=== PATIENT | female | born 1970 | race Caucasian/White ===

== ENCOUNTER 2019-12-27 12:43 | Inpatient (IN) | payer MEDICARE ==
[2019-12-27 13:04] LABS: Glucose,Whole Blood 255 mg/dL (75-99)
--- NOTE | 2019-12-27 13:53 | ED ---
General Adult HPI - General Chief complaint: Psychiatric Symptoms Stated complaint: mental health Time Seen by Provider: 12/27/19 13:09 Source: patient, family, RN notes reviewed, old records reviewed Mode of arrival: ambulatory Limitations: no limitations - History of Present Illness Initial comments: 49-year-old male patient past history of bipolar depression presents to ED for chief complaint of difficulty sleeping feeling as if she is becoming manic. Denies any suicidal or homicidal ideations. Denies any physical complaints. does report that she has been urinating more than usual. Patient is a diabetic. Denies any action to hurt herself. Systemic: Pt denies fatigue, fever/chills, rash. Pt denies weakness, night sweats, weight loss. Neuro: Pt denies headache, visual disturbances, syncope or pre-syncope. HEENT: Pt denies ocular discharge or irritation, otalgia, rhinorrhea, pharyngitis or notable lymphadenopathy. Cardiopulmonary: Pt denies chest pain, SOB, heart palpitations, dyspnea on exertion. Abdominal/GI: Pt denies abdominal pain, n/v/d. : Pt denies dysuria, burning w/ urination, frequency/urgency. Denies new onset urinary or bowel incontinence. MSK: Pt denies myalgia, loss of strength or function in extremities. Neuro: Pt denies new onset weakness, paresthesias. - Related Data Home Medications Medication Instructions Recorded Confirmed Acetaminophen [Tylenol] 650 mg PO Q6H PRN 03/08/16 07/03/16 diphenhydrAMINE HCL [Benadryl] 50 mg PO HS 03/08/16 07/03/16 Previous Rx's Medication Instructions Recorded Atorvastatin [Lipitor] 10 mg PO HS #30 tab 03/15/16 DULoxetine HCL [Cymbalta] 30 mg PO DAILY #30 capsule.dr 03/15/16 Divalproex ER [Depakote ER] 1,000 mg PO HS #90 tab.er.24h 03/15/16 Divalproex ER [Depakote ER] 500 mg PO DAILY #90 tab.er.24h 03/15/16 Lisinopril [Zestril] 10 mg PO DAILY #30 tab 03/15/16 clonazePAM [KlonoPIN] 0.5 mg PO BID PRN #60 tab 03/15/16 metFORMIN HCL [Glucophage] 500 mg PO W/BRKFST #30 tab 03/15/16 Diazepam [Valium] 5 mg PO BID #14 tab 07/03/16 HYDROcodone/APAP 5-325MG [Hanna 1 - 2 tab PO Q6HR PRN #14 tab 07/03/16 5-325] Ibuprofen [Motrin] 800 mg PO Q8HR PRN #20 tab 07/03/16 Allergies Allergy/AdvReac Type Severity Reaction Status Date / Time Penicillins Allergy Unknown Verified 12/27/19 12:50 Review of Systems ROS Statement: Those systems with pertinent positive or pertinent negative responses have been documented in the HPI. ROS Other: All systems not noted in ROS Statement are negative. Past Medical History Past Medical History: Diabetes Mellitus, GERD/Reflux, Hyperlipidemia, Hypertension, Osteoarthritis (OA) Additional Past Medical History / Comment(s): NIDD History of Any Multi-Drug Resistant Organisms: None Reported Past Surgical History: Hysterectomy Additional Past Surgical History / Comment(s): foot, nyla tendon, bladder lift. Past Anesthesia/Blood Transfusion Reactions: No Reported Reaction Past Psychological History: Anxiety, Bipolar, Depression Smoking Status: Current every day smoker Past Alcohol Use History: None Reported Past Drug Use History: Marijuana - Past Family History Father Family Medical History: Hyperlipidemia, Hypertension Additional Family Medical History / Comment(s): Father is alive at age 77 with history of hypertension, hyperlipidemia. Mother Family Medical History: Hypertension, Mitral Valve Prolapse (MVP) Additional Family Medical History / Comment(s): Mother is alive at age 80 with history of hypertension and mitral valve prolapse. Sister(s) Additional Family Medical History / Comment(s): She has one half sister with no major medical problems. She does not have any brothers. She has 2 daughters with no major medical problems. General Exam - General Exam Comments Initial Comments: Constitutional: NAD, AOX3, Pt has pleasant affect. HEENT: NC/AT, trachea midline, neck supple, no lymphadenopathy. Posterior pharynx non erythematous, without exudates. External ears appear normal, without discharge. Mucous membranes moist. Eyes PERRLA, EOM intact. There is no scleral icterus. No pallor noted. Cardiopulmonary: RRR, no murmurs, rubs or gallops, no JVD noted. Lungs CTAB in anterior and posterior marti. No peripheral edema. Abdominal exam: Abdomen soft and non-distended. Abdomen non-tender to palpation in all 4 quadrants. Bowel sounds active in LLQ. No hepatosplenomegaly. No ecc hymosis Neuro: CN II-XII grossly intact. No nuchal rigidity. No raccon eyes, no márquez sign, no hemotympanum. No cervical spinal tenderness. MSK: No posterior calf tenderness bilaterally, homans sign negative bilaterally. Posterior tibialis and radial pulse +2 bilaterally. Sensation intact in upper and lower extremities. Full active ROM in upper and lower extremities, 5/5 stregnth. Limitations: no limitations Course Vital Signs 12/27/19 12/27/19 12/27/19 12:47 13:40 16:12 Temperature 98.2 F 98.3 F Pulse Rate 118 H 100 122 H Respiratory 20 17 Rate Blood Pressure 167/88 178/95 O2 Sat by Pulse 99 97 Oximetry 12/27/19 16:22 Temperature Pulse Rate 105 H Respiratory Rate Blood Pressure O2 Sat by Pulse Oximetry Medical Decision Making - Medical Decision Making 49-year-old male patient past history of bipolar depression presents to ED for chief complaint of difficulty sleeping feeling as if she is becoming manic. Denies any suicidal or homicidal ideations. Denies any physical complaints. does report that she has been urinating more than usual. Patient is a diabetic. Denies any action to hurt herself. Patient vital signs but mild hypertension, mild tachycardia, patient is anxious. Physical exam did not display acute pathology. Laboratory investigations were obtained, therefore a m ild leukocytosis. Mildly decreased bicarbonate, glucose of 246, mild transaminitis which appears unchanged, anion gap is 15, +4 glucose, trace ketones. She does have small leukocyte esterase and 8 white blood cells however denies any dysuria. Acetone is negative. Patient was administered 1 L of normal saline as well as insulin. Patient evaluated by EPS and will be admitted. Case discussed in depth with Dr. Taylor. - Lab Data Result diagrams: 12/27/19 13:40 12/27/19 13:40 Lab Results 12/27/19 12/27/19 12/27/19 Range/Units 13:02 13:30 13:30 WBC (3.8-10.6) k/uL RBC (3.80-5.40) m/uL Hgb (11.4-16.0) gm/dL Hct (34.0-46.0) % MCV (80.0-100.0) fL MCH (25.0-35.0) pg MCHC (31.0-37.0) g/dL RDW (11.5-15.5) % Plt Count (150-450) k/uL Neutrophils % % Lymphocytes % % Monocytes % % Eosinophils % % Basophils % % Neutrophils # (1.3-7.7) k/uL Lymphocytes # (1.0-4.8) k/uL Monocytes # (0-1.0) k/uL Eosinophils # (0-0.7) k/uL Basophils # (0-0.2) k/uL Sodium (137-145) mmol/L Potassium (3.5-5.1) mmol/L Chloride (98-107) mmol/L Carbon Dioxide (22-30) mmol/L Anion Gap mmol/L BUN (7-17) mg/dL Creatinine (0.52-1.04) mg/dL Est GFR (CKD-EPI)AfAm (>60 ml/min/1.73 sqM) Est GFR (CKD-EPI)NonAf (>60 ml/min/1.73 sqM) Glucose (74-99) mg/dL POC Glucose (mg/dL) 255 H (75-99) mg/dL POC Glu Director Client ID Venessa Wilson Calcium (8.4-10.2) mg/dL Total Bilirubin (0.2-1.3) mg/dL AST (14-36) U/L ALT (4-34) U/L Alkaline Phosphatase (38-126) U/L Total Protein (6.3-8.2) g/dL Albumin (3.5-5.0) g/dL Urine Color Light Yellow Urine Appearance Clear (Clear) Urine pH 5.5 (5.0-8.0) Ur Specific [place] 1.007 (1.001-1.035) Urine Protein Negative (Negative) Urine Glucose (UA) 4+ H (Negative) Urine Ketones Trace H (Negative) Urine Blood Negative (Negative) Urine Nitrite Negative (Negative) Urine Bilirubin Negative (Negative) Urine Urobilinogen <2.0 (<2.0) mg/dL Ur Leukocyte Esterase Small H (Negative) Urine RBC 1 (0-5) /hpf Urine WBC 8 H (0-5) /hpf Ur Squamous Epith Cells 2 (0-4) /hpf Urine Bacteria Occasional H (None) /hpf Urine Mucus Rare H (None) /hpf Urine Opiates Screen Not Detected (NotDetected) Ur Oxycodone Screen Not Detected (NotDetected) Urine Methadone Screen Not Detected (NotDetected) Ur Propoxyphene Screen Not Detected (NotDetected) Ur Barbiturates Screen Not Detected (NotDetected) Valproic Acid ug/mL U Tricyclic Antidepress Not Detected (NotDetected) Ur Phencyclidine Scrn Not Detected (NotDetected) Ur Amphetamines Screen Not Detected (NotDetected) U Methamphetamines Scrn Not Detected (NotDetected) U Benzodiazepines Scrn Not Detected (NotDetected) Urine Cocaine Screen Not Detected (NotDetected) U Marijuana (THC) Screen Not Detected (NotDetected) Acetone, Qual (Negative) 12/27/19 12/27/19 12/27/19 Range/Units 13:40 13:40 13:40 WBC 14.5 H (3.8-10.6) k/uL RBC 5.17 (3.80-5.40) m/uL Hgb 14.2 (11.4-16.0) gm/dL Hct 42.7 (34.0-46.0) % MCV 82.5 (80.0-100.0) fL MCH 27.5 (25.0-35.0) pg MCHC 33.3 (31.0-37.0) g/dL RDW 13.4 (11.5-15.5) % Plt Count 546 H (150-450) k/uL Neutrophils % 77 % Lymphocytes % 18 % Monocytes % 3 % Eosinophils % 1 % Basophils % 0 % Neutrophils # 11.2 H (1.3-7.7) k/uL Lymphocytes # 2.5 (1.0-4.8) k/uL Monocytes # 0.5 (0-1.0) k/uL Eosinophils # 0.1 (0-0.7) k/uL Basophils # 0.0 (0-0.2) k/uL Sodium 134 L (137-145) mmol/L Potassium 4.9 (3.5-5.1) mmol/L Chloride 103 (98-107) mmol/L Carbon Dioxide 16 L (22-30) mmol/L Anion Gap 15 mmol/L BUN 6 L (7-17) mg/dL Creatinine 0.47 L (0.52-1.04) mg/dL Est GFR (CKD-EPI)AfAm >90 (>60 ml/min/1.73 sqM) Est GFR (CKD-EPI)NonAf >90 (>60 ml/min/1.73 sqM) Glucose 246 H (74-99) mg/dL POC Glucose (mg/dL) (75-99) mg/dL POC Glu Director Client ID Calcium 10.0 (8.4-10.2) mg/dL Total Bilirubin 0.6 (0.2-1.3) mg/dL AST 38 H (14-36) U/L ALT 35 H (4-34) U/L Alkaline Phosphatase 127 H (38-126) U/L Total Protein 8.2 (6.3-8.2) g/dL Albumin 5.0 (3.5-5.0) g/dL Urine Color Urine Appearance (Clear) Urine pH (5.0-8.0) Ur Specific [place] (1.001-1.035) Urine Protein (Negative) Urine Glucose (UA) (Negative) Urine Ketones (Negative) Urine Blood (Negative) Urine Nitrite (Negative) Urine Bilirubin (Negative) Urine Urobilinogen (<2.0) mg/dL Ur Leukocyte Esterase (Negative) Urine RBC (0-5) /hpf Urine WBC (0-5) /hpf Ur Squamous Epith Cells (0-4) /hpf Urine Bacteria (None) /hpf Urine Mucus (None) /hpf Urine Opiates Screen (NotDetected) Ur Oxycodone Screen (NotDetected) Urine Methadone Screen (NotDetected) Ur Propoxyphene Screen (NotDetected) Ur Barbiturates Screen (NotDetected) Valproic Acid <10.0 ug/mL U Tricyclic Antidepress (NotDetected) Ur Phencyclidine Scrn (NotDetected) Ur Amphetamines Screen (NotDetected) U Methamphetamines Scrn (NotDetected) U Benzodiazepines Scrn (NotDetected) Urine Cocaine Screen (NotDetected) U Marijuana (THC) Screen (NotDetected) Acetone, Qual Negative (Negative) Disposition Clinical Impression: Hyperglycemia, Psychiatric disorder Disposition: ADMITTED IP TO THIS HOSP Condition: Serious Is patient prescribed a controlled substance at d/c from ED?: No Referrals: None,Stated [Primary Care Provider] - 1-2 days
[2019-12-27 13:58] LABS: Appearance,Urine Clear (Clear); Bacteria,Urine Occasional /hpf; Bilirubin,Urine Negative (Negative); Blood,Urine Negative (Negative); Color,Urine Light Yellow; Glucose,Urine (UA) 4+ (Negative); Ketones,Urine Trace (Negative); Leukocyte Esterase,Urine Small (Negative); Mucus,Urine Rare /hpf; Nitrite,Urine Negative (Negative); PH, Urine 5.5 (5.0-8.0); Protein,Urine Negative (Negative); RBC,Urine 1 /hpf (0-5); Specific Gravity,Urine 1.007 (1.001-1.035); Squamous Epithelial Cell,Urine 2 /hpf (0-4); Urobilinogen,Urine <2.0 mg/dL (<2.0); WBC,Urine 8 /hpf (0-5)
[2019-12-27 14:03] LABS: Basophils % (A) 0 %; Eosinophils # (A) 0.1 k/uL (0-0.7); Eosinophils % (A) 1 %; HCT 42.7 % (34.0-46.0); HGB 14.2 gm/dL (11.4-16.0); Lymphocytes # (A) 2.5 k/uL (1.0-4.8); Lymphocytes % (A) 18 %; MCH 27.5 pg (25.0-35.0); MCHC 33.3 g/dL (31.0-37.0); MCV 82.5 fL (80.0-100.0); Mean Platelet Volume 6.7; Monocytes # (A) 0.5 k/uL (0-1.0); Monocytes % (A) 3 %; Neutrophils # (A) 11.2 k/uL (1.3-7.7); Neutrophils % (A) 77 %; Platelet Count 546 k/uL (150-450); RBC 5.17 m/uL (3.80-5.40); RDW 13.4 % (11.5-15.5); WBC 14.5 k/uL (3.8-10.6)
[2019-12-27 14:09] LABS: Amphetamine Screen,Urine Not Detected (NotDetected); Barbiturate Screen,Urine Not Detected (NotDetected); Benzodiazepines Screen,Urine Not Detected (NotDetected); Cocaine Screen,Urine Not Detected (NotDetected); Methadone Screen, Urine Not Detected (NotDetected); Opiate Screen,Urine Not Detected (NotDetected); Oxycodone Screen, Urine Not Detected (NotDetected); Phencyclidine Screen,Urine Not Detected (NotDetected); Tricyclic Antidepressant,Urine Not Detected (NotDetected); Urn Cannabinoid Scrn Not Detected (NotDetected)
[2019-12-27 14:18] LABS: ALT 35 U/L (4-34); AST 38 U/L (14-36); African American GFR (CKD) >90 (>60 ml/min/1.73 sqM); Alkaline Phosphatase 127 U/L (38-126); Anion Gap 15 mmol/L; Blood Urea Nitrogen 6 mg/dL (7-17); Carbon Dioxide 16 mmol/L (22-30); Chloride 103 mmol/L (98-107); Glucose 246 mg/dL (74-99); Non-African American GFR(CKD) >90 (>60 ml/min/1.73 sqM); Potassium 4.9 mmol/L (3.5-5.1); Sodium 134 mmol/L (137-145); Total Bilirubin 0.6 mg/dL (0.2-1.3); Total Protein 8.2 g/dL (6.3-8.2)
[2019-12-27 14:23] LABS: Valproic Acid (Depakene) <10.0 ug/mL
[2019-12-27] MEDS ORDERED: SODIUM CHLORIDE 0.9% 1,000 ML IV ONE (14:28)
[2019-12-27] MEDS ORDERED: INSULIN ASPART (NovoLOG) 100 UNIT/ML VIAL SQ ONE (14:29)
[2019-12-27] MEDS ORDERED: clonazePAM 0.5 MG TAB PO STA (16:27)
[2019-12-27 16:39] LABS: Glucose,Whole Blood 171 mg/dL (75-99)
[2019-12-27 17:36] LABS: Glucose,Whole Blood 151 mg/dL (75-99)
[2019-12-27] MEDS: ZIPRASIDONE 20 MG VIAL IM PRN (17:50)
[2019-12-27] MEDS: ATORVASTATIN 10 MG TAB PO SCH (21:15)
[2019-12-27 21:20] LABS: Glucose,Whole Blood 125 mg/dL (75-99)
[2019-12-28] MEDS: clonazePAM 0.5 MG TAB PO PRN (02:52)
[2019-12-28] MEDS: ACETAMINOPHEN TAB 325 MG TAB PO PRN (02:53)
[2019-12-28 07:11] LABS: Glucose,Whole Blood 206 mg/dL (75-99)
[2019-12-28] MEDS: metFORMIN 500 MG TAB PO SCH (08:26)
[2019-12-28] MEDS: LISINOPRIL 10 MG TAB PO SCH (08:26)
[2019-12-28] MEDS: DIVALPROEX ER 500 MG TAB.ER.24H PO SCH ×2 (08:28→21:41)
[2019-12-28] MEDS ORDERED: DULoxetine HCL 30 MG CAPSULE.DR PO SCH (09:00)
[2019-12-28 10:53] LABS: Glucose,Whole Blood 165 mg/dL (75-99)
[2019-12-28 12:28] LABS: Glucose,Whole Blood 165 mg/dL (75-99)
--- NOTE | 2019-12-28 14:01 | P.HP ---
Psychiatric H&P - . H&P Date: 12/28/19 History & Physical: Allergies Allergy/AdvReac Type Severity Reaction Status Date / Time Penicillins Allergy Unknown Verified 12/27/19 12:50 Vital Signs Temp 98.4 F 12/28/19 06:07 Pulse 115 H 12/28/19 08:28 Resp 20 12/28/19 08:28 BP 142/85 12/28/19 08:28 Pulse Ox 95 12/28/19 06:07 Intake & Output 12/27/19 12/28/19 12/28/19 18:59 06:59 18:59 Weight 91.9 kg Laboratory Last Values WBC 14.5 k/uL (3.8-10.6) H 12/27/19 13:40 RBC 5.17 m/uL (3.80-5.40) 12/27/19 13:40 Hgb 14.2 gm/dL (11.4-16.0) 12/27/19 13:40 Hct 42.7 % (34.0-46.0) 12/27/19 13:40 MCV 82.5 fL (80.0-100.0) 12/27/19 13:40 MCH 27.5 pg (25.0-35.0) 12/27/19 13:40 MCHC 33.3 g/dL (31.0-37.0) 12/27/19 13:40 RDW 13.4 % (11.5-15.5) 12/27/19 13:40 Plt Count 546 k/uL (150-450) H 12/27/19 13:40 Neutrophils % 77 % 12/27/19 13:40 Lymphocytes % 18 % 12/27/19 13:40 Monocytes % 3 % 12/27/19 13:40 Eosinophils % 1 % 12/27/19 13:40 Basophils % 0 % 12/27/19 13:40 Neutrophils # 11.2 k/uL (1.3-7.7) H 12/27/19 13:40 Lymphocytes # 2.5 k/uL (1.0-4.8) 12/27/19 13:40 Monocytes # 0.5 k/uL (0-1.0) 12/27/19 13:40 Eosinophils # 0.1 k/uL (0-0.7) 12/27/19 13:40 Basophils # 0.0 k/uL (0-0.2) 12/27/19 13:40 Sodium 134 mmol/L (137-145) L 12/27/19 13:40 Potassium 4.9 mmol/L (3.5-5.1) 12/27/19 13:40 Chloride 103 mmol/L (98-107) 12/27/19 13:40 Carbon Dioxide 16 mmol/L (22-30) L 12/27/19 13:40 Anion Gap 15 mmol/L 12/27/19 13:40 BUN 6 mg/dL (7-17) L 12/27/19 13:40 Creatinine 0.47 mg/dL (0.52-1.04) L 12/27/19 13:40 Est GFR (CKD-EPI)AfAm >90 (>60 ml/min/1.73 sqM) 12/27/19 13:40 Est GFR (CKD-EPI)NonAf >90 (>60 ml/min/1.73 sqM) 12/27/19 13:40 Glucose 246 mg/dL (74-99) H 12/27/19 13:40 POC Glucose (mg/dL) 165 mg/dL (75-99) H 12/28/19 12:26 POC Glu [employer] Super[employer] ID Katelyn Tafoya 12/28/19 12:26 Calcium 10.0 mg/dL (8.4-10.2) 12/27/19 13:40 Total Bilirubin 0.6 mg/dL (0.2-1.3) 12/27/19 13:40 AST 38 U/L (14-36) H 12/27/19 13:40 ALT 35 U/L (4-34) H 12/27/19 13:40 Alkaline Phosphatase 127 U/L (38-126) H 12/27/19 13:40 Total Protein 8.2 g/dL (6.3-8.2) 12/27/19 13:40 Albumin 5.0 g/dL (3.5-5.0) 12/27/19 13:40 Triglycerides 290 mg/dL (<150) H 12/28/19 08:24 Cholesterol 204 mg/dL (<200) H 12/28/19 08:24 LDL Cholesterol, Calc 99 mg/dL (0-99) 12/28/19 08:24 HDL Cholesterol 47 mg/dL (40-60) 12/28/19 08:24 TSH 0.521 mIU/L (0.465-4.680) 12/28/19 08:24 Urine Color Light Yellow 12/27/19 13:30 Urine Appearance Clear (Clear) 12/27/19 13:30 Urine pH 5.5 (5.0-8.0) 12/27/19 13:30 Ur Specific [place] 1.007 (1.001-1.035) 12/27/19 13:30 Urine Protein Negative (Negative) 12/27/19 13:30 Urine Glucose (UA) 4+ (Negative) H 12/27/19 13:30 Urine Ketones Trace (Negative) H 12/27/19 13:30 Urine Blood Negative (Negative) 12/27/19 13:30 Urine Nitrite Negative (Negative) 12/27/19 13:30 Urine Bilirubin Negative (Negative) 12/27/19 13:30 Urine Urobilinogen <2.0 mg/dL (<2.0) 12/27/19 13:30 Ur Leukocyte Esterase Small (Negative) H 12/27/19 13:30 Urine RBC 1 /hpf (0-5) 12/27/19 13:30 Urine WBC 8 /hpf (0-5) H 12/27/19 13:30 Ur Squamous Epith Cells 2 /hpf (0-4) 12/27/19 13:30 Urine Bacteria Occasional /hpf (None) H 12/27/19 13:30 Urine Mucus Rare /hpf (None) H 12/27/19 13:30 Urine Opiates Screen Not Detected (NotDetected) 12/27/19 13:30 Ur Oxycodone Screen Not Detected (NotDetected) 12/27/19 13:30 Urine Methadone Screen Not Detected (NotDetected) 12/27/19 13:30 Ur Propoxyphene Screen Not Detected (NotDetected) 12/27/19 13:30 Ur Barbiturates Screen Not Detected (NotDetected) 12/27/19 13:30 Valproic Acid <10.0 ug/mL 12/27/19 13:40 U Tricyclic Antidepress Not Detected (NotDetected) 12/27/19 13:30 Ur Phencyclidine Scrn Not Detected (NotDetected) 12/27/19 13:30 Ur Amphetamines Screen Not Detected (NotDetected) 12/27/19 13:30 U Methamphetamines Scrn Not Detected (NotDetected) 12/27/19 13:30 U Benzodiazepines Scrn Not Detected (NotDetected) 12/27/19 13:30 Urine Cocaine Screen Not Detected (NotDetected) 12/27/19 13:30 U Marijuana (THC) Screen Not Detected (NotDetected) 12/27/19 13:30 Acetone, Qual Negative (Negative) 12/27/19 13:40 12/28/19 13:52 IDENTIFYING DATA: 49-year-old single female patient HPI: Patient admitted to the inpatient psychiatric unit [facility] on a voluntary basis with concerns of psychosis symptoms. When asked patient what brought her into the hospital she started talking about her and her ex-boyfriend. She then started talking about she was starting to get better when the Phan virus started, 2 weeks ago she started drinking more coffee and using more cigarettes. She says she was confined to the house a lot and then started talking about using CBD oil. She made reference to pouring evap CBD oil on her tongue. She says she hasn't been sleeping really lately. She says night she felt like she was going to in the kitchen and couldn't get her heart to stop beating. She relates that her daughter decided she wanted her to go to the hospital. PAST PSYCHIATRIC HISTORY: Patient states this is probably her 15th inpatient psychiatric admission. She says she doesn't like Seroquel or Effexor. She does Klonopin is the only one to help. She thinks she was on Abilify in the past. She doesn't a history of bipolar disorder. She does make reference to having had suicide attempts in the past, relay she came close when she took Xanax. She does state that she has been psychotic before. She makes reference to seeing Dr. Cope through [facility]. She thinks her most recent psychotropic medications a been Cymbalta on Trileptal. Home medications per chart include Cymbalta and Depakote ER. She does relate a history of anxiety. PMH: Diabetes mellitus, hypertension, hypercholesterolemia ALLERGIES: Penicillins MEDICATIONS: Tylenol when necessary, Maalox when necessary, Lipitor, Klonopin when necessary, Benadryl when necessary, Depakote ER, Zestril, milk of magnesia when necessary, Glucophage, Geodon when necessary CHEMICAL DEPENDENCY HISTORY: Patient states that she used to smoke marijuana. She says she was told not to use it due to concerns of psychosis. She relays rare alcohol use. She makes reference to recently using CBD oil. FAMILY PSYCHIATRIC HISTORY: No psychiatric family history that she knows of. FAMILY CHEMICAL DEPENDENCY HISTORY: None known at this time. SOCIAL HISTORY: Relays that she lives with her daughter. She states she is on disability and has 2 children. She makes several references to her ex- boyfriend. MENTAL STATUS EXAM: She is alert and overall cooperative with the interview. Her speech is fluent, rapid and somewhat pressured at times. Her mood is described as "I'm okay now." Her thought processes are disorganized. She becomes tearful at times and has labile affect. She talks under her breath at times. She denies any hallucinations and denies any thoughts of harm to self or others. Cognitively she appears very grossly intact. I do not note any significant disorientation or significant memory disturbance. Her insight has some limits, judgment shows evidence of recent impairment. STRENGTHS/WEAKNESSES: Strengths-appears to have some support; weaknesses-coping skills INTELLECTUAL FUNCTIONING: Average IMPRESSIONS: Bipolar disorder, manic with psychosis PLAN: Patient is admitted to the inpatient psychiatric unit [facility] a voluntary basis. She'll be placed on SP 15 minute precautions. She'll be participating in group and activity therapies. Basal laboratory workup will be done the patient and medical consultation will be ordered. Some concern that perhaps she has not been taking the Depakote as her level was less than 10, we'll reinitiate as mood stabilizers Depakote ER 500 mg a.m. and at bedtime. We'll also initiate Abilify 5 more grams daily for mood stability as well as some treatment of any psychosis symptoms. We will put a hold on Cymbalta at this time in the face of some manic symptoms. We will look into any support systems. Estimated length of stay is 5-7 days. Prognosis is guarded.
[2019-12-28] MEDS: ARIPiprazole 5 MG TAB PO SCH (14:07)
--- NOTE | 2019-12-28 16:49 | P.HPMEDMHU ---
History of Present Illness H&P Date: 12/28/19 Chief Complaint: psychosis Patient is a 49-year-old female past medical history of diabetes, GERD, hypertension, and dyslipidemia who presented to the hospital due to manic behaviors. She was admitted to the mental health unit. Patient seen and examined. She has a flight of ideas and bounces around from talking about surgery she had as a child to multiple blood draws and bruises, 2 ear problems, to her diabetes. She denies any cough, cold, fever, flu, diarrh ea, constipation, dysuria nausea, or vomiting. She has no other complaints currently. Review of Systems Pertinent positives and negatives as discussed in HPI, a complete review of systems was performed and all other systems are negative. Past Medical History Past Medical History: Diabetes Mellitus, GERD/Reflux, Hyperlipidemia, Hypertension, Osteoarthritis (OA) Additional Past Medical History / Comment(s): NIDD History of Any Multi-Drug Resistant Organisms: None Reported Past Surgical History: Hysterectomy Additional Past Surgical History / Comment(s): foot, nyla tendon, bladder lift. Past Anesthesia/Blood Transfusion Reactions: No Reported Reaction Past Psychological History: Anxiety, Bipolar, Depression Smoking Status: Current every day smoker Additional Past Alcohol Use History / Comment(s): Patient is a smoker of one third pack of cigarettes per day since she was 11 years of age. She denies any marijuana or street drug use. She denies any alcohol use. Past Drug Use History: Marijuana Additional Drug Use History / Comment(s): Patient reports she smoked marijuana in the past but has been clean. - Past Family History Father Family Medical History: Hyperlipidemia, Hypertension Additional Family Medical History / Comment(s): Father is alive at age 77 with history of hypertension, hyperlipidemia. Mother Family Medical History: Hypertension, Mitral Valve Prolapse (MVP) Additional Family Medical History / Comment(s): Mother is alive at age 80 with history of hypertension and mitral valve prolapse. Sister(s) Additional Family Medical History / Comment(s): She has one half sister with no major medical problems. She does not have any brothers. She has 2 daughters with no major medical problems. Medications and Allergies Home Medications Medication Instructions Recorded Confirmed Type Acetaminophen [Tylenol] 650 mg PO Q6H PRN 03/08/16 12/27/19 History diphenhydrAMINE HCL [Benadryl] 50 mg PO HS 03/08/16 12/27/19 History Atorvastatin [Lipitor] 10 mg PO HS #30 tab 03/15/16 12/27/19 Rx DULoxetine HCL [Cymbalta] 30 mg PO DAILY #30 capsule.dr 03/15/16 12/27/19 Rx Divalproex ER [Depakote ER] 1,000 mg PO HS #90 tab.er.24h 03/15/16 12/27/19 Rx Divalproex ER [Depakote ER] 500 mg PO DAILY #90 tab.er.24h 03/15/16 12/27/19 Rx Lisinopril [Zestril] 10 mg PO DAILY #30 tab 03/15/16 12/27/19 Rx clonazePAM [KlonoPIN] 0.5 mg PO BID PRN #60 tab 03/15/16 12/27/19 Rx metFORMIN HCL [Glucophage] 500 mg PO W/BRKFST #30 tab 03/15/16 12/27/19 Rx Diazepam [Valium] 5 mg PO BID #14 tab 07/03/16 12/27/19 Rx HYDROcodone/APAP 5-325MG [[place] 1 - 2 tab PO Q6HR PRN #14 tab 07/03/16 12/27/19 Rx 5-325] Ibuprofen [Motrin] 800 mg PO Q8HR PRN #20 tab 07/03/16 12/27/19 Rx Allergies Allergy/AdvReac Type Severity Reaction Status Date / Time Penicillins Allergy Unknown Verified 12/27/19 12:50 Physical Exam Osteopathic Statement: *. No significant issues noted on an osteopathic structural exam other than those noted in the History and Physical/Consult. Vitals: Vital Signs Temp Pulse Resp BP Pulse Ox 12/28/19 08:28 115 H 20 142/85 12/28/19 06:12 108 H 12/28/19 06:07 98.4 F 120 H 16 155/96 95 12/27/19 19:03 98.4 F 12/27/19 17:26 97.1 F L 122 H 20 150/100 General:, no distress, appears at stated age, normal weight Derm: Multiple areas of bruising, large area of bruising with swelling left wrist, no unusual rashes/lesions no unusual ecchymoses, warm, dry Head: atraumatic, normocephalic, symmetric Eyes: EOMI, no lid lag, anicteric sclera, pupils equal round reactive to light ENT: Nose and ears atraumatic, no thrush, no pharyngeal erythema Neck: No thyromegaly, no cervical lymphadenopathy, trachea midline, supple Mouth: no lip lesion, mucus membranes moist Cardiovascular: S1S2 reg, no murmur, positive posterior tibial pulse bilateral, no edema, capillary refill less than 2 seconds Lungs: CTA bilateral, no rhonchi, no rales , no accessory muscle use Abdominal: soft, nontender to palpation, no guarding, no appreciable organomegaly, normal bowel sounds Ext: no gross muscle atrophy, muscle strength 5 out of 5 in all 4 extremities grossly, no contractures, Neuro: CN II-XI grossly intact, light touch intact all 4 extremities, finger to nose within normal limits, Psych: Alert, oriented, flight of ideas, inability to concentrate Cranial Nerve Examination - Cranial Nerves Cranial Nerve II- Optic: Intact Cranial Nerve III- Oculomotor: Intact Cranial Nerve IV- Trochlear: Intact Cranial Nerve V- Trigeminal: Intact Cranial Nerve - Abducens: Intact Cranial Nerve VII- Facial: Intact Cranial Nerve VIII- Auditory: Intact Cranial Nerve IX- Glossopharyngeal: Intact Cranial Nerve X- Vagus: Intact Cranial Nerve XI- Accessory: Intact Cranial Nerve XII- Hypoglossal: Intact Results CBC & Chem 7: 12/27/19 13:40 12/27/19 13:40 Labs: Abnormal Lab Results - Last 24 Hours (Table) 12/27/19 12/27/19 12/28/19 Range/Units 17:35 21:18 07:08 POC Glucose (mg/dL) 151 H 125 H 206 H (75-99) mg/dL Triglycerides (<150) mg/dL Cholesterol (<200) mg/dL 12/28/19 12/28/19 12/28/19 Range/Units 08:24 10:50 12:26 POC Glucose (mg/dL) 165 H 165 H (75-99) mg/dL Triglycerides 290 H (<150) mg/dL Cholesterol 204 H (<200) mg/dL Thrombosis Risk Factor Assmnt - Choose All That Apply Any of the Below Risk Factors Present?: Yes Each Factor Represents 1 point: Age 41-60 years Other Risk Factors: No Other congenital or acquired thrombophilia - If yes, enter type in comment: No Thrombosis Risk Factor Assessment Total Risk Factor Score: 1 Thrombosis Risk Factor Assessment Level: Low Risk Assessment and Plan Assessment: Leukocytosis -Suspect reactive -Repeat CBC in 2 days -UA negative -No other concerning symptoms Brusing and swelling left forearm - nursing to follow q day Diabetes mellitus type 2 -On metformin therapy -Follow a.m. Accu-Cheks -Continue with metformin Dyslipidemia -Statin therapy Bipolar disorder with ni -Your psych management Thank you for allowing us to participate in the care of this pleasant patient. Do not hesitate to contact us with questions. Someone can be reached from the [facility] hospitalist group all hours of the day at [phone] or via [employer].
[2019-12-28 19:41] LABS: Hemoglobin A1C 8.2 % (4.0-6.0)
[2019-12-28] MEDS: ATORVASTATIN 10 MG TAB PO SCH (21:41)
[2019-12-29] MEDS: clonazePAM 0.5 MG TAB PO PRN (01:11)
[2019-12-29 03:47] LABS: Glucose,Whole Blood 147 mg/dL (75-99)
[2019-12-29 07:49] LABS: Glucose,Whole Blood 184 mg/dL (75-99)
[2019-12-29] MEDS: metFORMIN 500 MG TAB PO SCH (07:52)
[2019-12-29] MEDS: DIVALPROEX ER 500 MG TAB.ER.24H PO SCH ×2 (07:53→19:45)
[2019-12-29] MEDS: ARIPiprazole 5 MG TAB PO SCH (07:53)
[2019-12-29] MEDS: LISINOPRIL 10 MG TAB PO SCH (07:53)
[2019-12-29] MEDS: ZIPRASIDONE 20 MG VIAL IM PRN (09:20)
--- NOTE | 2019-12-29 12:36 | P.PN ---
Progress Note - Text Progress Note Date: 12/29/19 Interval history: Patient is seen again in cross coverage today. She relays she slept better last night and then it sounds like she took a nap today after receiving an injection. She says that she received an injection today for racing thoughts. She does describe feeling better today she does not seem to voice any adverse psychotropic medication side effects. Mental status exam: She is alert and cooperative with the interview. She does not show any agitation. Her mood is described as "entertaining." She denies any thoughts of harm to self or others. She denies any hallucinations. She does not show any current agitation. Her thought processes are more organized today. Plan: We'll titrate Abilify to 10 mg daily to help further with mood stabilization and treatment/prevention of psychosis. Status is improved today. Continue to monitor for any medication side effects and monitor her ongoing response to treatment.
[2019-12-29] MEDS: ATORVASTATIN 10 MG TAB PO SCH (19:45)
[2019-12-29] MEDS: ACETAMINOPHEN TAB 325 MG TAB PO PRN (21:16)
[2019-12-30] MEDS: clonazePAM 0.5 MG TAB PO PRN ×2 (01:08→15:40)
[2019-12-30] MEDS: ZIPRASIDONE 20 MG VIAL IM PRN (02:18)
[2019-12-30 07:47] LABS: Glucose,Whole Blood 166 mg/dL (75-99)
[2019-12-30 08:01] LABS: Basophils # (A) 0.1 k/uL (0-0.2); Basophils % (A) 1 %; Eosinophils # (A) 0.2 k/uL (0-0.7); Eosinophils % (A) 2 %; HCT 40.9 % (34.0-46.0); HGB 13.2 gm/dL (11.4-16.0); Lymphocytes # (A) 4.1 k/uL (1.0-4.8); Lymphocytes % (A) 37 %; MCH 27.1 pg (25.0-35.0); MCHC 32.2 g/dL (31.0-37.0); MCV 84.3 fL (80.0-100.0); Mean Platelet Volume 6.5; Monocytes # (A) 0.5 k/uL (0-1.0); Monocytes % (A) 5 %; Neutrophils # (A) 6.1 k/uL (1.3-7.7); Neutrophils % (A) 55 %; Platelet Count 386 k/uL (150-450); RBC 4.85 m/uL (3.80-5.40); RDW 13.3 % (11.5-15.5); WBC 11.1 k/uL (3.8-10.6)
[2019-12-30] MEDS: LISINOPRIL 10 MG TAB PO SCH (08:16)
[2019-12-30] MEDS: DIVALPROEX ER 500 MG TAB.ER.24H PO SCH ×2 (08:16→21:01)
[2019-12-30] MEDS: ARIPiprazole 10 MG TAB PO SCH (08:16)
[2019-12-30] MEDS: metFORMIN 500 MG TAB PO SCH (08:16)
[2019-12-30 08:28] LABS: African American GFR (CKD) >90 (>60 ml/min/1.73 sqM); Anion Gap 8 mmol/L; Blood Urea Nitrogen 7 mg/dL (7-17); Calcium 9.6 mg/dL (8.4-10.2); Carbon Dioxide 25 mmol/L (22-30); Chloride 105 mmol/L (98-107); Glucose 138 mg/dL (74-99); Non-African American GFR(CKD) >90 (>60 ml/min/1.73 sqM); Potassium 4.3 mmol/L (3.5-5.1); Sodium 138 mmol/L (137-145)
--- NOTE | 2019-12-30 14:03 | P.PN ---
Subjective Progress Note Date: 12/30/19 the patient seen in the chart was reviewed. The patient reports feeling better today. She reports tolerating the changes in medications without any side effects at this time. The patient reports good sleep last night and reports improvement in appetite. The patient remained somewhat hyperverbal but is easily redirectable. The patient is pleasant and cooperative during the session. The patient denies any auditory or visual hallucinations at this time. The patient denies any active suicidal homicidal or paranoid ideations at this time. Objective - Vital Signs Vital signs: Vital Signs Temp 98.1 F 12/30/19 01:15 Pulse 72 12/30/19 01:15 Resp 18 12/30/19 01:15 BP 154/78 12/30/19 01:15 Pulse Ox 95 12/30/19 01:15 Intake & Output 12/29/19 12/30/19 12/30/19 18:59 06:59 18:59 Weight 91.8 kg - Exam Mental Status Exam: General Appearance: Patient appears to be stated age is alert, directable. fPatient has fair eye contact. Behavior: Patient is seated without any agitated behavior. Speech: Patient's speech is goal-directed and nonpressured. soft tone. Mood/Affect: Patient reports their mood is improving. Affect is congruent. Suicidality/Homicidality: Patient reports having suicidal ideation. Perceptions: Patient reports no auditory or visual hallucinations. Though content/process: Denies any delusional or paranoid ideations. Memory and concentration: AOX3, grossly intact for the purposes of this session. Judgment and insight: Limited - Labs CBC & Chem 7: 12/30/19 07:11 12/30/19 07:11 Labs: Abnormal Lab Results - Last 24 Hours (Table) 12/30/19 12/30/19 12/30/19 Range/Units 07:11 07:11 07:46 WBC 11.1 H (3.8-10.6) k/uL Glucose 138 H (74-99) mg/dL POC Glucose (mg/dL) 166 H (75-99) mg/dL Assessment and Plan Assessment: Bipolar disorder Plan: Continue inpatient level of care due to need for further stabilization on medications Precautions: Continue 15 minutes check for safety. Consults internal medicine team for management of medical problems. Provide the patient individual, group therapy, substance use disorder counseling to give better insight and learn coping skills. Medications: continue Abilify 10 mg by mouth daily. Continue Depakote 500 mg by mouth twice a day. continue all other treatment at this time. Plan to check Depakote level in 2 days. Discharge patient to OUTPATIENT services upon a stabilization Expected LOS: 3-5 days
[2019-12-30] MEDS: ACETAMINOPHEN TAB 325 MG TAB PO PRN ×2 (15:40→23:25)
[2019-12-30] MEDS: ATORVASTATIN 10 MG TAB PO SCH (21:00)
[2019-12-31] MEDS: clonazePAM 0.5 MG TAB PO PRN ×2 (01:25→22:28)
[2019-12-31] MEDS: diphenhydrAMINE 50 MG CAP PO PRN (01:26)
[2019-12-31] MEDS: ACETAMINOPHEN TAB 325 MG TAB PO PRN (07:41)
[2019-12-31] MEDS: LISINOPRIL 10 MG TAB PO SCH (07:41)
[2019-12-31] MEDS: ARIPiprazole 10 MG TAB PO SCH (07:41)
[2019-12-31] MEDS: DIVALPROEX ER 500 MG TAB.ER.24H PO SCH ×2 (07:41→21:26)
[2019-12-31] MEDS: metFORMIN 500 MG TAB PO SCH (07:41)
[2019-12-31 07:52] LABS: Glucose,Whole Blood 163 mg/dL (75-99)
[2019-12-31 10:53] LABS: Glucose,Whole Blood 155 mg/dL (75-99)
--- NOTE | 2019-12-31 12:37 | P.PN ---
Subjective Progress Note Date: 12/31/19 the patient seen in the chart was reviewed. The patient reports some increase in anxiety today. She reports increased racing thoughts and paranoia. She reports being suspicious of people around her. The patient reports good sleep last night and reports good appetite. The patient remained somewhat hyperverbal but is easily redirectable. The patient is pleasant and cooperative during the session. The patient denies any auditory or visual hallucinations at this time. The patient denies any active suicidal homicidal or paranoid ideations at this time. Objective - Vital Signs Vital signs: Vital Signs Temp 98.4 F 12/31/19 03:10 Pulse 104 H 12/31/19 07:40 Resp 16 12/31/19 07:40 BP 137/77 12/31/19 07:40 Pulse Ox 98 12/31/19 03:10 - Exam Mental Status Exam: General Appearance: Patient appears to be stated age is alert, directable. fPatient has fair eye contact. Behavior: Patient is seated without any agitated behavior. Speech: Patient's speech is goal-directed and nonpressured. soft tone. Mood/Affect: Patient reports mood is ''pretty good''. Affect is somewhat c onstricted. Suicidality/Homicidality: Patient denies any active suicidal or homicidal ideations at this time. Perceptions: Patient reports no auditory or visual hallucinations. Though content/process: Denies any delusional or paranoid ideations. Memory and concentration: AOX3, grossly intact for the purposes of this session. Judgment and insight: Limited - Labs CBC & Chem 7: 12/30/19 07:11 12/30/19 07:11 Labs: Abnormal Lab Results - Last 24 Hours (Table) 12/31/19 12/31/19 Range/Units 07:51 10:50 POC Glucose (mg/dL) 163 H 155 H (75-99) mg/dL Assessment and Plan Assessment: Bipolar disorder; mixed episode with psychotic features. Plan: Continue inpatient level of care due to need for further stabilization on medications Precautions: Continue 15 minutes check for safety. Consults internal medicine team for management of medical problems. Provide the patient individual, group therapy, substance use disorder counseling to give better insight and learn coping skills. Medications: Increase Abilify 15 mg by mouth daily. Continue Depakote 500 mg by mouth twice a day. continue all other treatment at this time. Check Depakote level in am. Discharge patient to OUTPATIENT services upon a stabilization Expected LOS: 3-5 days
[2019-12-31 12:40] LABS: Glucose,Whole Blood 162 mg/dL (75-99)
[2019-12-31] MEDS: MAG HYDROX/AL HYDROX/SIMETH 30 ML CUP PO PRN ×2 (15:45→19:46)
[2019-12-31] MEDS: MAGNESIUM HYDROXIDE 2,400 MG/10 ML CUP PO PRN (15:45)
[2019-12-31] MEDS: ATORVASTATIN 10 MG TAB PO SCH (21:26)
[2020-01-01] MEDS: diphenhydrAMINE 50 MG CAP PO PRN (00:25)
[2020-01-01] MEDS: ACETAMINOPHEN TAB 325 MG TAB PO PRN ×3 (00:25→21:00)
[2020-01-01] MEDS: ZIPRASIDONE 20 MG VIAL IM PRN (02:34)
[2020-01-01 07:45] LABS: Glucose,Whole Blood 137 mg/dL (75-99)
[2020-01-01] MEDS: LISINOPRIL 10 MG TAB PO SCH (08:39)
[2020-01-01] MEDS: NICOTINE 7MG/24HR PATCH TRANSDERM SCH (08:39)
[2020-01-01] MEDS: metFORMIN 500 MG TAB PO SCH (08:39)
[2020-01-01] MEDS: DIVALPROEX ER 500 MG TAB.ER.24H PO SCH ×2 (08:39→20:58)
[2020-01-01] MEDS: ARIPiprazole 15 MG TAB PO SCH (08:39)
[2020-01-01] MEDS: clonazePAM 0.5 MG TAB PO PRN ×2 (10:44→22:21)
--- NOTE | 2020-01-01 11:36 | P.PN ---
Subjective Progress Note Date: 01/01/20 the patient seen in the chart was reviewed. The patient reports feeling a little better today. She reported difficulty falling asleep but had otherwise good sleep last night.. She is somatically focused and difficult to redirect. The patient reports good sleep last night and reports good appetite. The patient remained somewhat hyperverbal and circumstantial. The patient is pleasant and cooperative during the session. The patient denies any auditory or visual hallucinations at this time. The patient denies any active suicidal homicidal or paranoid ideations at this time. Objective - Vital Signs Vital signs: Vital Signs Temp 97.5 F L 01/01/20 06:23 Pulse 105 H 01/01/20 08:38 Resp 16 01/01/20 06:23 BP 137/77 01/01/20 08:38 Pulse Ox 99 01/01/20 06:23 - Exam Mental Status Exam: General Appearance: Patient appears to be stated age is alert, directable. fPatient has fair eye contact. Behavior: Patient is seated without any agitated behavior. Speech: Patient's speech is hyperverbal but nonpressured. soft tone. Mood/Affect: Patient reports mood is ''good''. Affect is somewhat constricted. Suicidality/Homicidality: Patient denies any active suicidal or homicidal ideations at this time. Perceptions: Patient reports no auditory or visual hallucinations. Though content/process: Denies any delusional or paranoid ideations. Memory and concentration: AOX3, grossly intact for the purposes of this session. Judgment and insight: Limited - Labs CBC & Chem 7: 12/30/19 07:11 12/30/19 07:11 Labs: Abnormal Lab Results - Last 24 Hours (Table) 12/31/19 12/31/19 01/01/20 Range/Units 10:50 12:38 07:43 POC Glucose (mg/dL) 155 H 162 H 137 H (75-99) mg/dL Assessment and Plan Assessment: Bipolar disorder; mixed episode with psychotic features. Plan: Continue inpatient level of care due to need for further stabilization on medications Precautions: Continue 15 minutes check for safety. Consults internal medicine team for management of medical problems. Provide the patient individual, group therapy, substance use disorder counseling to give better insight and learn coping skills. Medications: Continue Abilify 15 mg by mouth daily. Continue Depakote 500 mg by mouth twice a day. continue all other treatment at this time. Awaiting Depakote levels. Discharge patient to OUTPATIENT services upon a stabilization Expected LOS: 3-5 days
[2020-01-01] MEDS: ATORVASTATIN 10 MG TAB PO SCH (20:59)
[2020-01-01] MEDS: MAG HYDROX/AL HYDROX/SIMETH 30 ML CUP PO PRN (22:21)
[2020-01-02] MEDS: ACETAMINOPHEN TAB 325 MG TAB PO PRN ×2 (00:48→13:23)
[2020-01-02] MEDS: diphenhydrAMINE 50 MG CAP PO PRN (00:48)
[2020-01-02 07:53] LABS: Glucose,Whole Blood 144 mg/dL (75-99)
[2020-01-02] MEDS: ARIPiprazole 15 MG TAB PO SCH (08:27)
[2020-01-02] MEDS: LISINOPRIL 10 MG TAB PO SCH (08:27)
[2020-01-02] MEDS: DIVALPROEX ER 500 MG TAB.ER.24H PO SCH ×2 (08:27→20:51)
[2020-01-02] MEDS: NICOTINE 7MG/24HR PATCH TRANSDERM SCH (08:27)
[2020-01-02] MEDS: metFORMIN 500 MG TAB PO SCH (08:27)
--- NOTE | 2020-01-02 10:49 | P.PN ---
Subjective Progress Note Date: 01/02/20 The patient seen in the chart was reviewed. The patient continues to report slow improvement in mood and functioning. She remain somatically focused but is more redirectable. The patient reports good sleep last night and reports good appetite. The patient remained somewhat hyperverbal and circumstantial. The patient is pleasant and cooperative during the session. The patient denies any auditory or visual hallucinations at this time. The patient denies any active suicidal homicidal or paranoid ideations at this time. Objective - Vital Signs Vital signs: Vital Signs Temp 97.5 F L 01/02/20 06:15 Pulse 108 H 01/02/20 08:28 Resp 16 01/02/20 06:15 BP 147/70 01/02/20 08:28 Pulse Ox 97 01/01/20 22:24 - Exam Mental Status Exam: General Appearance: Patient appears to be stated age is alert, directable. fPatient has fair eye contact. Behavior: Patient is seated without any agitated behavior. Speech: Patient's speech is hyperverbal but nonpressured. soft tone. Mood/Affect: Patient reports mood is ''great''. Affect is somewhat constricted. Suicidality/Homicidality: Patient denies any active suicidal or homicidal ideations at this time. Perceptions: Patient reports no auditory or visual hallucinations. Though content/process: Denies any delusional or paranoid ideations. Memory and concentration: AOX3, grossly intact for the purposes of this session. Judgment and insight: Limited - Labs CBC & Chem 7: 12/30/19 07:11 12/30/19 07:11 Labs: Abnormal Lab Results - Last 24 Hours (Table) 01/02/20 Range/Units 07:51 POC Glucose (mg/dL) 144 H (75-99) mg/dL Assessment and Plan Assessment: Bipolar disorder; mixed episode with psychotic features. Plan: Continue inpatient level of care due to need for further stabilization on medications Precautions: Continue 15 minutes check for safety. Consults internal medicine team for management of medical problems. Provide the patient individual, group therapy, substance use disorder counseling to give better insight and learn coping skills. Medications: Continue Abilify 15 mg by mouth daily. Increase Depakote 500 mg by every morning and 1000 mg by mouth daily at bedtime. continue all other treatment at this time. Depakote level 48.7. Discharge patient to OUTPATIENT services upon a stabilization Expected LOS: 3-5 days
[2020-01-02 12:24] LABS: Glucose,Whole Blood 138 mg/dL (75-99)
[2020-01-02] MEDS: clonazePAM 0.5 MG TAB PO PRN (13:23)
[2020-01-02] MEDS: MAG HYDROX/AL HYDROX/SIMETH 30 ML CUP PO PRN (14:38)
[2020-01-02 17:05] LABS: Glucose,Whole Blood 130 mg/dL (75-99)
[2020-01-02] MEDS: ATORVASTATIN 10 MG TAB PO SCH (20:51)
[2020-01-03] MEDS: MAG HYDROX/AL HYDROX/SIMETH 30 ML CUP PO PRN ×3 (00:47→14:52)
[2020-01-03] MEDS: clonazePAM 0.5 MG TAB PO PRN ×2 (00:47→16:49)
[2020-01-03] MEDS: diphenhydrAMINE 50 MG CAP PO PRN ×2 (04:24→22:32)
[2020-01-03 06:53] LABS: Glucose,Whole Blood 127 mg/dL (75-99)
[2020-01-03] MEDS: NICOTINE 7MG/24HR PATCH TRANSDERM SCH (08:02)
[2020-01-03] MEDS: metFORMIN 500 MG TAB PO SCH (08:03)
[2020-01-03] MEDS: DIVALPROEX ER 500 MG TAB.ER.24H PO SCH ×2 (08:03→21:03)
[2020-01-03] MEDS: ARIPiprazole 15 MG TAB PO SCH (08:03)
[2020-01-03] MEDS: LISINOPRIL 10 MG TAB PO SCH (08:05)
[2020-01-03 10:57] LABS: Glucose,Whole Blood 146 mg/dL (75-99)
--- NOTE | 2020-01-03 12:48 | P.PN ---
Subjective Progress Note Date: 01/03/20 The patient seen in the chart was reviewed. The patient continues to report having mood swings and confusion. She reports cognitive slowing and reported that she had forgotten that her dad has and just remembered that. She remain somatically focused and is difficult to redirect. She reports good appetite. The patient is still reports poor sleep at night and reports that she got maybe about 4 hours last night. The patient remained somewhat hyperverbal and circumstantial. The patient is pleasant and cooperative during the session. The patient denies any auditory or visual hallucinations at this time. The patient denies any active suicidal homicidal or paranoid ideations at this time. Objective - Vital Signs Vital signs: Vital Signs Temp 97.0 F L 01/03/20 12:00 Pulse 105 H 01/03/20 08:06 Resp 20 01/03/20 08:06 BP 142/74 01/03/20 08:06 Pulse Ox 97 01/01/20 22:24 - Exam Mental Status Exam: General Appearance: Patient appears to be stated age is alert, directable. fPatient has fair eye contact. Behavior: Patient is seated without any agitated behavior. Speech: Patient's speech is hyperverbal but nonpressured. soft tone. Mood/Affect: Patient reports mood is ''confused''. Affect is somewhat constricted. Suicidality/Homicidality: Patient denies any active suicidal or homicidal ideations at this time. Perceptions: Patient reports no auditory or visual hallucinations. Though content/process: Denies any delusional or paranoid ideations. Memory and concentration: AOX3, grossly intact for the purposes of this session. Judgment and insight: Limited - Labs CBC & Chem 7: 12/30/19 07:11 12/30/19 07:11 Labs: Abnormal Lab Results - Last 24 Hours (Table) 01/02/20 01/02/20 01/03/20 Range/Units 12:23 17:03 06:50 POC Glucose (mg/dL) 138 H 130 H 127 H (75-99) mg/dL 01/03/20 Range/Units 10:54 POC Glucose (mg/dL) 146 H (75-99) mg/dL Assessment and Plan Assessment: Bipolar disorder; mixed episode with psychotic features. Plan: Continue inpatient level of care due to need for further stabilization on medications Precautions: Continue 15 minutes check for safety. Consults internal medicine team for management of medical problems. Provide the patient individual, group therapy, substance use disorder counseling to give better insight and learn coping skills. Medications: Increase Abilify 5mg PO qam and 15 mg by mouth daily. Continue Depakote 500 mg by every morning and 1000 mg by mouth daily at bedtime. continue all other treatment at this time. Discharge patient to OUTPATIENT services upon a stabilization Expected LOS: 3-5 days
[2020-01-03 14:09] VITALS: BMI 35.8
[2020-01-03] MEDS: MAGNESIUM HYDROXIDE 2,400 MG/10 ML CUP PO PRN (16:49)
[2020-01-03] MEDS: ACETAMINOPHEN TAB 325 MG TAB PO PRN ×2 (16:49→22:32)
[2020-01-03 17:42] LABS: Glucose,Whole Blood 156 mg/dL (75-99)
[2020-01-03] MEDS: ATORVASTATIN 10 MG TAB PO SCH (21:03)
[2020-01-04] MEDS: clonazePAM 0.5 MG TAB PO PRN ×2 (02:18→13:07)
[2020-01-04] MEDS: ACETAMINOPHEN TAB 325 MG TAB PO PRN ×2 (06:02→13:07)
[2020-01-04 07:43] LABS: Glucose,Whole Blood 153 mg/dL (75-99)
[2020-01-04] MEDS: NICOTINE 7MG/24HR PATCH TRANSDERM SCH (08:02)
[2020-01-04] MEDS: ARIPiprazole 5 MG TAB PO SCH (08:02)
[2020-01-04] MEDS: metFORMIN 500 MG TAB PO SCH (08:02)
[2020-01-04] MEDS: LISINOPRIL 10 MG TAB PO SCH (08:02)
[2020-01-04] MEDS: ARIPiprazole 15 MG TAB PO SCH (08:02)
[2020-01-04] MEDS: DIVALPROEX ER 500 MG TAB.ER.24H PO SCH ×2 (08:02→20:56)
--- NOTE | 2020-01-04 09:39 | P.PN ---
Progress Note - Text Progress Note Date: 01/04/20 Interval history: Patient was seen sitting in the lounge by herself putting on her socks and was directable and agreeable to speak with machine sign writer. Patient appeared to be polite this morning and was directable during conversation. She states that she is feeling "much better" on the medications and states that she feels her "mental stuff is getting better but my physical problems are starting to show up now". She spoke about pain in her knees and legs. She states that she is getting along with others and tending groups regularly. She states that she slept of the night and has been taking her medications. She denies any depression at this time and did not endorse any delusions. At this time patient denies any suicidal or homicidal ideations intent or plan. Denies any Auditory or visual hallucinations. Patient denies any side effects from the medications and has been compliant with meds. Mental status exam: General Appearance: Patient appears to be overweight, stated age is alert, directable, and cooperative. Patient is polite. Behavior: No agitated behavior. Patient is calm and directable Speech: Patient's speech is fluent and nonpressured. Mood/Affect: Mood is improving mildly, affect is congruent Suicidality/Homicidality: Patient denies having any suicidal or homicidal ideation intent or plan. Perceptions: Patient denies any auditory or visual hallucinations. Though content/process: There is no evidence of any delusional thought content and thought process is linear and goal-directed. Memory and concentration: AOX3, grossly intact for the purposes of this session Judgment and insight: improving mildly Assessment/Plan: Continue with current diagnosis. Patient continues to meet criteria for inpatient psychiatric admission for symptom stabilization and safety.Patient will be maintained on current psychotropic medication regimen. Monitor for medication compliance and for any psychotropic medication side effects. Will continue to monitor ongoing response to treatment. Encouraged participation in milieu.
[2020-01-04] MEDS: MAG HYDROX/AL HYDROX/SIMETH 30 ML CUP PO PRN (14:50)
[2020-01-04] MEDS: ATORVASTATIN 10 MG TAB PO SCH (20:56)
[2020-01-05] MEDS: clonazePAM 0.5 MG TAB PO PRN ×3 (00:39→21:14)
[2020-01-05 07:39] LABS: Glucose,Whole Blood 153 mg/dL (75-99)
[2020-01-05] MEDS: ARIPiprazole 5 MG TAB PO SCH (07:43)
[2020-01-05] MEDS: metFORMIN 500 MG TAB PO SCH (07:43)
[2020-01-05] MEDS: ARIPiprazole 15 MG TAB PO SCH (07:43)
[2020-01-05] MEDS: DIVALPROEX ER 500 MG TAB.ER.24H PO SCH ×2 (07:44→20:05)
[2020-01-05] MEDS: NICOTINE 7MG/24HR PATCH TRANSDERM SCH (07:44)
[2020-01-05] MEDS: LISINOPRIL 10 MG TAB PO SCH (07:44)
[2020-01-05] MEDS: ACETAMINOPHEN TAB 325 MG TAB PO PRN ×2 (10:13→21:14)
--- NOTE | 2020-01-05 10:46 | P.PN ---
Progress Note - Text Progress Note Date: 01/05/20 Interval history: Patient was seen wandering the hallways and was directable and agreeable to s peak with abstract writer. Patient continues to be polite and appropriate during conversation. She states that she feels anxious this morning and was upset as one of the other patients came into her room last night and scared her. She states that the patient ran down the hallway to try to get away from her. She states that she is still thinking about it this morning. She states that she is feeling "much better" on the medications. She claims that she wants to continue on the same dose of her medications. She denies any depression at this time and did not endorse any delusions. At this time patient denies any suicidal or homicidal ideations intent or plan. Denies any Auditory or visual hallucinations. Patient denies any side effects from the medications and has been compliant with meds. Mental status exam: General Appearance: Patient appears to be overweight, stated age is alert, directable, and cooperative. Patient is polite and appropriate. Behavior: No agitated behavior. Patient is calm and directable Speech: Patient's speech is fluent and nonpressured. Mood/Affect: Mood is improving mildly, affect is congruent Suicidality/Homicidality: Patient denies having any suicidal or homicidal ideation intent or plan. Perceptions: Patient denies any auditory or visual hallucinations. Though content/process: There is no evidence of any delusional thought content and thought process is linear and goal-directed. Memory and concentration: AOX3, grossly intact for the purposes of this session Judgment and insight: improving mildly Assessment/Plan: Continue with current diagnosis. Patient continues to meet criteria for inpatient psychiatric admission for symptom stabilization and safety.Patient will be maintained on current psychotropic medication regimen. Monitor for medication compliance and for any psychotropic medication side effects. Will continue to monitor ongoing response to treatment. Encouraged participation in milieu.
[2020-01-05] MEDS: ATORVASTATIN 10 MG TAB PO SCH (20:05)
[2020-01-05] MEDS: diphenhydrAMINE 50 MG CAP PO PRN (22:43)
[2020-01-06] MEDS: ACETAMINOPHEN TAB 325 MG TAB PO PRN ×3 (04:52→23:00)
[2020-01-06] MEDS: clonazePAM 0.5 MG TAB PO PRN (04:53)
[2020-01-06 07:53] LABS: Glucose,Whole Blood 143 mg/dL (75-99)
[2020-01-06] MEDS: ARIPiprazole 15 MG TAB PO SCH (08:00)
[2020-01-06] MEDS: metFORMIN 500 MG TAB PO SCH (08:01)
[2020-01-06] MEDS: ARIPiprazole 5 MG TAB PO SCH (08:01)
[2020-01-06] MEDS: LISINOPRIL 10 MG TAB PO SCH (08:01)
[2020-01-06] MEDS: NICOTINE 7MG/24HR PATCH TRANSDERM SCH (08:01)
[2020-01-06] MEDS: DIVALPROEX ER 500 MG TAB.ER.24H PO SCH ×2 (08:01→22:03)
--- NOTE | 2020-01-06 12:22 | P.PN ---
Subjective Progress Note Date: 01/06/20 The patient seen in the chart was reviewed. The patient continues to report some improvement in mood and functioning. The patient reports fair sleep and reports good appetite but reports frequent awakenings during the night although reports feeling rested during the day. The patient remained somewhat hy perverbal and circumstantial but is more redirectable. The patient is pleasant and cooperative during the session. The patient denies any auditory or visual hallucinations at this time. The patient denies any active suicidal homicidal or paranoid ideations at this time. Objective - Vital Signs Vital signs: Vital Signs Temp 98 F 01/06/20 04:30 Pulse 99 01/06/20 07:59 Resp 16 01/06/20 04:30 BP 113/75 01/06/20 07:59 Pulse Ox 97 01/05/20 07:49 Intake & Output 01/05/20 01/06/20 01/06/20 18:59 06:59 18:59 Weight 90.3 kg - Exam Mental Status Exam: General Appearance: Patient appears to be stated age is alert, directable. Patient has fair eye contact. Behavior: Patient is seated without any agitated behavior. Speech: Patient's speech is hyperverbal but nonpressured. soft tone. Mood/Affect: Patient reports mood is ''fine''. Affect is appropriate. Suicidality/Homicidality: Patient denies any active suicidal or homicidal ideations at this time. Perceptions: Patient reports no auditory or visual hallucinations. Though content/process: Denies any delusional or paranoid ideations. Memory and concentration: AOX3, grossly intact for the purposes of this session. Judgment and insight: Limited - Labs CBC & Chem 7: 12/30/19 07:11 12/30/19 07:11 Labs: Abnormal Lab Results - Last 24 Hours (Table) 01/06/20 Range/Units 07:49 POC Glucose (mg/dL) 143 H (75-99) mg/dL Assessment and Plan Assessment: Bipolar disorder; mixed episode with psychotic features. Plan: Continue inpatient level of care due to need for further stabilization on medications Precautions: Continue 15 minutes check for safety. Consults internal medicine team for management of medical problems. Provide the patient individual, group therapy, substance use disorder counseling to give better insight and learn coping skills. Medications: Discontinue Klonopin. Continue Abilify 15 mg by mouth daily. Continue Depakote 500 mg by every morning and 1000 mg by mouth daily at bedtime. continue all other treatment at this time. Will repeat Depakote level. Discharge plans in progress Discharge patient to OUTPATIENT services upon a stabilization Expected LOS: 3-5 days
[2020-01-06] MEDS: ATORVASTATIN 10 MG TAB PO SCH (22:03)
[2020-01-07] MEDS: NICOTINE 7MG/24HR PATCH TRANSDERM SCH (07:29)
[2020-01-07] MEDS: LISINOPRIL 10 MG TAB PO SCH (07:30)
[2020-01-07] MEDS: metFORMIN 500 MG TAB PO SCH (07:30)
[2020-01-07] MEDS: DIVALPROEX ER 500 MG TAB.ER.24H PO SCH ×2 (07:30→21:10)
[2020-01-07] MEDS: ARIPiprazole 15 MG TAB PO SCH (07:30)
[2020-01-07] MEDS: ARIPiprazole 5 MG TAB PO SCH (07:30)
[2020-01-07 07:52] LABS: Glucose,Whole Blood 136 mg/dL (75-99)
[2020-01-07] MEDS: ACETAMINOPHEN TAB 325 MG TAB PO PRN ×3 (09:35→21:11)
[2020-01-07] MEDS: MAG HYDROX/AL HYDROX/SIMETH 30 ML CUP PO PRN ×2 (09:35→21:07)
--- NOTE | 2020-01-07 11:55 | P.PN ---
Subjective Progress Note Date: 01/07/20 The patient seen in the chart was reviewed. The patient continues to report some improvement in mood and functioning. The patient reports fair but broken sleep and reports good appetite. The patient remained somewhat hyperverbal and circumstantial but is more redirectable. The patient is pleasant and c ooperative during the session. The patient denies any auditory or visual hallucinations at this time. The patient denies any active suicidal homicidal or paranoid ideations at this time. The patient denies any side effects on the medications. Objective - Vital Signs Vital signs: Vital Signs Temp 98.1 F 01/07/20 06:00 Pulse 92 01/07/20 06:00 Resp 14 01/07/20 06:00 BP 137/80 01/07/20 06:00 Pulse Ox 97 01/07/20 06:00 - Exam Mental Status Exam: General Appearance: Patient appears to be stated age is alert, directable. Patient has fair eye contact. Behavior: Patient is seated without any agitated behavior. Speech: Patient's speech is hyperverbal but nonpressured. soft tone. Mood/Affect: Patient reports mood is ''fine''. Affect is appropriate. Suicidality/Homicidality: Patient denies any active suicidal or homicidal ideations at this time. Perceptions: Patient reports no auditory or visual hallucinations. Though content/process: Denies any delusional or paranoid ideations. Memory and concentration: AOX3, grossly intact for the purposes of this session. Judgment and insight: Limited - Labs CBC & Chem 7: 12/30/19 07:11 12/30/19 07:11 Labs: Abnormal Lab Results - Last 24 Hours (Table) 01/07/20 Range/Units 07:51 POC Glucose (mg/dL) 136 H (75-99) mg/dL Assessment and Plan Assessment: Bipolar disorder; mixed episode with psychotic features. Plan: Continue inpatient level of care due to need for further stabilization on medications Precautions: Continue 15 minutes check for safety. Consults internal medicine team for management of medical problems. Provide the patient individual, group therapy, substance use disorder counseling to give better insight and learn coping skills. Dep level 99.6 Medications: Continue Abilify 15 mg by mouth daily. Continue Depakote 500 mg by every morning and 1000 mg by mouth daily at bedtime. continue all other treatment at this time. Will repeat Depakote level. Discharge plans in progress Discharge patient to OUTPATIENT services upon a stabilization Expected LOS: 3-5 days
[2020-01-07] MEDS: ATORVASTATIN 10 MG TAB PO SCH (21:10)
[2020-01-08 07:07] VITALS: BP 157/90; PULSE 95; RESP 16
[2020-01-08 07:42] LABS: Glucose,Whole Blood 135 mg/dL (75-99)
[2020-01-08] MEDS: NICOTINE 7MG/24HR PATCH TRANSDERM SCH (08:01)
[2020-01-08] MEDS: ARIPiprazole 5 MG TAB PO SCH (08:01)
[2020-01-08] MEDS: metFORMIN 500 MG TAB PO SCH (08:01)
[2020-01-08] MEDS: ARIPiprazole 15 MG TAB PO SCH (08:01)
[2020-01-08] MEDS: DIVALPROEX ER 500 MG TAB.ER.24H PO SCH (08:02)
[2020-01-08] MEDS: LISINOPRIL 10 MG TAB PO SCH (08:02)
[2020-01-08] MEDS: MAG HYDROX/AL HYDROX/SIMETH 30 ML CUP PO PRN (10:12)
[2020-01-08] MEDS: ACETAMINOPHEN TAB 325 MG TAB PO PRN (10:12)
--- NOTE | 2020-01-08 12:37 | P.PN ---
Subjective Progress Note Date: 01/08/20 Discharge Note: Patient was seen and chart was reviewed. Case discussed with staff. The patient reports doing better and denies any new problems at this time. [She] admits to fair energy and fair appetite. The patient reports good sleep and appetite. At this time patient denies any suicidal or homicidal ideations, intent or plan. Patient denies any auditory, visual hallucinations and denies any paranoia or delusions. Patient denies any side effects from the medications and has been compliant with meds. Objective - Vital Signs Vital signs: Vital Signs Temp 97.4 F L 01/08/20 06:28 Pulse 95 01/08/20 06:28 Resp 16 01/08/20 06:28 BP 157/90 01/08/20 06:28 Pulse Ox 97 01/07/20 06:00 - Exam Mental Status Exam: General Appearance: Patient appears to be stated age is alert, directable. fair hygiene and grooming. Patient has good eye contact. Behavior: Patient is seated without any agitated behavior. Speech: Patient's speech is fluent and nonpressured. soft tone. Mood/Affect: Patient reports their mood/anxiety is mildly improving, affect is congruent Suicidality/Homicidality: Patient denies having any suicidal or homicidal ideation intent or plan. Perceptions: Patient denies any auditory or visual hallucinations. Though content/process: There is no evidence of any delusional thought content and thought process is linear and goal-directed. Memory and concentration: AOX3, grossly intact for the purposes of this session. Judgment and insight: Fair - Labs CBC & Chem 7: 12/30/19 07:11 12/30/19 07:11 Labs: Abnormal Lab Results - Last 24 Hours (Table) 01/08/20 Range/Units 07:40 POC Glucose (mg/dL) 135 H (75-99) mg/dL Assessment and Plan Assessment: Bipolar disorder; mixed episode with psychotic features. Plan: Plan: Precautions: Continue 15 minutes check for safety. Dep level 99.6 Medications: Continue Abilify 15 mg by mouth daily. Continue Depakote 500 mg by every morning and 1000 mg by mouth daily at bedtime. continue all other treatment at this time. One-to-one supportive psychotherapy was provided. Discussed discharge planning. Continue -Discharge home today to follow-up as an outpatient. The patient's condition is stable at the time of discharge.
--- NOTE | 2020-01-08 13:00 | P.DS ---
Providers Date of admission: 12/27/19 16:27 Attending physician: Francy Buchanan MD Consults: 12/27/19 16:31 Consult Physician Routine Consulting Provider: Sridhar Physician Consult Reason/Comments: medical management Do you want consulting provider notified?: Yes Primary care physician: Stated None Hospital Course: IDENTIFYING DATA: 49-year-old single female patient. HPI: Patient admitted to the inpatient psychiatric unit [facility] on a voluntary basis with concerns of psychosis symptoms. When asked patient what brought her into the hospital she started talking about her and her ex-boyfriend. She then started talking about she was starting to get better when the Phna virus started, 2 weeks ago she started drinking more coffee and using more cigarettes. She says she was confined to the house a lot and then started talking about using CBD oil. She made reference to pouring evap CBD oil on her tongue. She says she hasn't been sleeping really lately. She says night she felt like she was going to in the kitchen and couldn't get her heart to stop beating. She relates that her daughter decided she wanted her to go to the hospital. PAST PSYCHIATRIC HISTORY: Patient states that it was probably her 15th inpatient psychiatric admission. She says she doesn't like Seroquel or Effexor. She reported that Klonopin was the only one to help. She reported that she was on Abilify in the past. She doesn't a history of bipolar disorder. She does make reference to having had suicide attempts in the past. She stated that she was on antipsychotics before. She made reference to seeing Dr. Cope through [facility]. She thinks her most recent psychotropic medications a been Cymbalta on Trileptal. Home medications per chart include Cymbalta and Depakote ER. She does relate a history of anxiety. PMH: Diabetes mellitus, hypertension, hypercholesterolemia ALLERGIES: Penicillins MEDICATIONS: Tylenol when necessary, Maalox when necessary, Lipitor, Klonopin when necessary, Benadryl when necessary, Depakote ER, Zestril, milk of magnesia when necessary, Glucophage, Geodon when necessary CHEMICAL DEPENDENCY HISTORY: Patient states that she used to smoke marijuana. She says she was told not to use it due to concerns of psychosis. She relays rare alcohol use. She makes reference to recently using CBD oil. FAMILY PSYCHIATRIC HISTORY: No psychiatric family history that she knows of. FAMILY CHEMICAL DEPENDENCY HISTORY: None known at this time. SOCIAL HISTORY: Relays that she lives with her daughter. She states she is on disability and has 2 children. She makes several references to her ex- boyfriend. MENTAL STATUS EXAM: She is alert and overall cooperative with the interview. Her speech is fluent, rapid and somewhat pressured at times. Her mood is described as "I'm okay now." Her thought processes are disorganized. She becomes tearful at times and has labile affect. She talks under her breath at times. She denies any hallucinations and denies any thoughts of harm to self or others. Cognitively she appears very grossly intact. I do not note any significant disorientation or significant memory disturbance. Her insight has some limits, judgment shows evidence of recent impairment. STRENGTHS/WEAKNESSES: Strengths-appears to have some support; weaknesses-coping skills INTELLECTUAL FUNCTIONING: Average Hospital Course: Patient was admitted to the inpatient psychiatric unit [facility] a voluntary basis. She was placed on SP 15 minute precautions. She was participating in group and activity therapies. Basal laboratory workup was done the patient and medical consultation was ordered. Some concerns that perhaps she was not been taking the Depakote as her level was less than 10, Mood stabilizers Depakote ER 500 mg a.m. and at bedtime was a started. Initiated Abilify 5 more grams daily for mood stability as well as some treatment of any psychosis symptoms. The patient was cooperative and compliant with the treatment but continued to report feeling depressed and anxious. She also complained of poor sleep. Her Abilify was gradually increased to 5 mg by mouth every morning and 15 mg by mouth daily at bedtime. The patient tolerated the changes in medication without any side effects. Depakote level was monitored and was gradually increased to 500 mg by mouth every morning and 1000 mg by mouth daily at bedtime. Repeated Depakote level was 99.6. Patient was attending groups and activities, sleeping and eating well and reported that her mood had improved. Patient reported no side effects from the medication. Patient will follow up at [facility][1]. Patient was agreeable with the plan for discharge and will follow up at [facility][1]. Discharge Mental Status: Appearance/Attitude: Patient is neatly and appropriately dressed, makes eye contact and was cooperative. Behavior: Patient did not display any psychomotor agitation or retardation. Speech/Language: Patient's speech was spontaneous of normal volume and rhythm and he was coherent Thought Process: Patient was goal-directed there is no evidence of loose association or flight of ideas Thought Content: Patient denied any auditory or visual hallucinations no delusions or paranoid ideation were elicited. Suicidal/Homicidal Ideation: Patient denies any current suicidal or homicidal ideation Sensorium/Cognition: Patient is alert and oriented to person, place, and time and his recent and remote memory were grossly intact Mood/Affect: Patient's mood is more positive and his affect is appropriate to his mood Insight/Judgment: Patient's insight and judgment are fair Risk Assessment: Patient's risk for readmission is moderate to the patient not be compliant with medications and follow-up care, use alcohol and/or drugs Discharge Plan: Patient will be discharged home Patient [facility] and will follow up at the [facility]'s clinic for her medical problems. Patient was encouraged to be compliant with medications and follow-up appointments and to avoid all alcohol and drugs. Patient Condition at Discharge: Stable Assessment: IMPRESSIONS: Bipolar disorder, manic with psychosis Patient Condition at Discharge: Stable Plan - Discharge Summary Discharge Rx Participant: No New Discharge Prescriptions: New ARIPiprazole [Abilify] 5 mg PO DAILY #30 tab ARIPiprazole [Abilify] 15 mg PO DAILY 30 Days tab Divalproex ER [Depakote ER] 1,000 mg PO HS #60 tab.er.24h Divalproex ER [Depakote ER] 500 mg PO DAILY #30 tab.er.24h Nicotine 7Mg/24Hr Patch [Habitrol] 1 patch TRANSDERM DAILY #14 patch Continue diphenhydrAMINE HCL [Benadryl] 50 mg PO HS metFORMIN HCL [Glucophage] 500 mg PO W/BRKFST #30 tab Atorvastatin [Lipitor] 10 mg PO HS #30 tab Lisinopril [Zestril] 10 mg PO DAILY #30 tab DULoxetine HCL [Cymbalta] 30 mg PO DAILY #30 capsule.dr Discontinued Acetaminophen [Tylenol] 650 mg PO Q6H PRN PRN Reason: Pain Divalproex ER [Depakote ER] 500 mg PO DAILY #90 tab.er.24h Divalproex ER [Depakote ER] 1,000 mg PO HS #90 tab.er.24h clonazePAM [KlonoPIN] 0.5 mg PO BID PRN #60 tab PRN Reason: Anxiety Diazepam [Valium] 5 mg PO BID #14 tab HYDROcodone/APAP 5-325MG [[place] 5-325] 1 - 2 tab PO Q6HR PRN #14 tab PRN Reason: Analgesia Ibuprofen [Motrin] 800 mg PO Q8HR PRN #20 tab PRN Reason: Analgesia Discharge Medication List diphenhydrAMINE HCL [Benadryl] 50 mg PO HS 03/08/16 [History] Atorvastatin [Lipitor] 10 mg PO HS #30 tab 03/15/16 [Rx] Lisinopril [Zestril] 10 mg PO DAILY #30 tab 03/15/16 [Rx] metFORMIN HCL [Glucophage] 500 mg PO W/BRKFST #30 tab 03/15/16 [Rx] ARIPiprazole [Abilify] 5 mg PO DAILY #30 tab 01/08/20 [Rx] ARIPiprazole [Abilify] 15 mg PO DAILY 30 Days tab 01/08/20 [Rx] DULoxetine HCL [Cymbalta] 30 mg PO DAILY #30 capsule.dr 01/08/20 [Rx] Divalproex ER [Depakote ER] 1,000 mg PO HS #60 tab.er.24h 01/08/20 [Rx] Divalproex ER [Depakote ER] 500 mg PO DAILY #30 tab.er.24h 01/08/20 [Rx] Nicotine 7Mg/24Hr Patch [Habitrol] 1 patch TRANSDERM DAILY #14 patch 01/08/20 [Rx] Follow up Appointment(s)/Referral(s): [facility] [Outside] - 01/09/20 9:00 am (January 08 at 9:00 with Gale Paz at [place] office January 08 at 10:00 with case lopez Amber Montoya) Serena Vargas DO [REFERRING] - 1-2 Days Patient Instructions/Handouts: Depression (DC), Suicide Prevention (DC) Activity/Diet/Wound Care/Special Instructions: Activity and diet as tolerated. Avoid the use of street drugs and alcohol. Take all medications as prescribed. When you are in need of refills on your medications please contact your medical provider and/or outpatient psychiatrist to have this done. Please go to scheduled outpatient appointment for aftercare treatment. If symptoms return or become worse, call the crisis line at and/or go to the nearest emergency room for evaluation.
[2020-01-08 13:09] VITALS: TEMP 97.5
== END 2020-01-08 13:11 | disposition home or self-care (01) | DRG 885 ==
LOC: EC 12:43 → 3MHU 16:27
PROVIDERS: ADMIT Psychiatry & Neurology Psychiatry; ATTEND Psychiatry & Neurology Psychiatry
DX: F31.2 Bipolar disorder, current episode manic severe with psychotic features (principal); D72.829 Elevated white blood cell count, unspecified; E11.65 Type 2 diabetes mellitus with hyperglycemia; E78.00 Pure hypercholesterolemia, unspecified; E78.5 Hyperlipidemia, unspecified; F17.210 Nicotine dependence, cigarettes, uncomplicated; F41.9 Anxiety disorder, unspecified; I10 Essential (primary) hypertension; Z79.899 Other long term (current) drug therapy; Z82.49 Family history of ischemic heart disease and other diseases of the circulatory system; Z90.710 Acquired absence of both cervix and uterus; Z91.5 Personal history of self-harm; M19.90 Unspecified osteoarthritis, unspecified site; S40.022A Contusion of left upper arm, initial encounter; Z88.0 Allergy status to penicillin; Z79.84 Long term (current) use of oral hypoglycemic drugs
CPT/HCPCS: 36415; 80048; 80053; 80061; 80164; 80306; 81001; 82009; 82075; 83036; 84443; 85025; 96360; 99285

== ENCOUNTER 2020-01-16 10:44 | Emergency (ER) | payer BC, MEDICARE ==
[2020-01-16 10:51] VITALS: RESP 18
--- NOTE | 2020-01-16 11:38 | ED ---
General Adult HPI - General Source: patient, RN notes reviewed Mode of arrival: ambulatory Limitations: no limitations <Estevan Barragan - Last Filed: 01/16/20 11:36> <Farhan Munguia - Last Filed: 01/16/20 17:52> - General Chief complaint: Urogenital Stated complaint: possible UTI Time Seen by Provider: 01/16/20 10:51 - History of Present Illness Initial comments: This a 49-year-old male presents emergency department for multiple reasons. Patient states that she's having some urinary frequency and dysuria. Patient believes that she has urinary tract infection. Patient states this started on Monday or Monday. Patient states symptoms are worsening. No fevers or chills no chest pain or shortness of breath. She states she has some chronic back issues worsened usual. Patient states that she was discharged one week ago after 2 week stay for acute psychosis, bipolar disorder. She states that she has not been taking her Klonopin as directed states that she started smoking and drinking heavily. She states she is very addictive. Patient is addicted to marijuana. Patient states that she is now sleeping she's been up all night and all day states that she's had multiple projects going at once and did not complete any simple tasks. Patient's symptoms another states that she is heading down her acute manic state. (Estevan Barragan) - Related Data Home Medications Medication Instructions Recorded Confirmed diphenhydrAMINE HCL [Benadryl] 25 mg PO HS PRN 03/08/16 01/16/20 Acetaminophen Tab [Tylenol Tab] 1,000 mg PO Q6HR PRN 01/16/20 01/16/20 Atorvastatin [Lipitor] 20 mg PO HS 01/16/20 01/16/20 OXcarbazepine [Trileptal] 150 mg PO DAILY 01/16/20 01/16/20 glipiZIDE XL [Glucotrol Xl] 10 mg PO DAILY 01/16/20 01/16/20 Previous Rx's Medication Instructions Recorded Lisinopril [Zestril] 10 mg PO DAILY #30 tab 03/15/16 ARIPiprazole [Abilify] 5 mg PO DAILY #30 tab 01/08/20 ARIPiprazole [Abilify] 15 mg PO DAILY 30 Days tab 01/08/20 DULoxetine HCL [Cymbalta] 30 mg PO DAILY #30 capsule. 01/08/20 Divalproex ER [Depakote ER] 1,000 mg PO HS #60 tab.er.24h 01/08/20 Divalproex ER [Depakote ER] 500 mg PO DAILY #30 tab.er.24h 01/08/20 Nicotine 7Mg/24Hr Patch [Habitrol] 1 patch TRANSDERM DAILY #14 patch 01/08/20 Allergies Allergy/AdvReac Type Severity Reaction Status Date / Time Penicillins Allergy Unknown Verified 01/16/20 11:08 Review of Systems ROS Other: All systems not noted in ROS Statement are negative. <Estevan Barragan - Last Filed: 01/16/20 11:36> ROS Other: All systems not noted in ROS Statement are negative. <Farhan Munguia - Last Filed: 01/16/20 17:52> ROS Statement: Those systems with pertinent positive or pertinent negative responses have been documented in the HPI. Past Medical History Past Medical History: Diabetes Mellitus, GERD/Reflux, Hyperlipidemia, Hypertensi on, Osteoarthritis (OA) Additional Past Medical History / Comment(s): NIDD History of Any Multi-Drug Resistant Organisms: None Reported Past Surgical History: Hysterectomy Additional Past Surgical History / Comment(s): foot, nyla tendon, bladder lift. Past Anesthesia/Blood Transfusion Reactions: No Reported Reaction Past Psychological History: Anxiety, Bipolar, Depression Smoking Status: Current every day smoker Past Alcohol Use History: Occasional Past Drug Use History: Marijuana - Past Family History Father Family Medical History: Hyperlipidemia, Hypertension Additional Family Medical History / Comment(s): Father is alive at age 77 with history of hypertension, hyperlipidemia. Mother Family Medical History: Hypertension, Mitral Valve Prolapse (MVP) Additional Family Medical History / Comment(s): Mother is alive at age 80 with history of hypertension and mitral valve prolapse. Sister(s) Additional Family Medical History / Comment(s): She has one half sister with no major medical problems. She does not have any brothers. She has 2 daughters with no major medical problems. <Estevan Barragan - Last Filed: 01/16/20 11:36> General Exam Limitations: no limitations General appearance: alert, in no apparent distress Head exam: Present: atraumatic, normocephalic, normal inspection Eye exam: Present: normal appearance, PERRL, EOMI. Absent: scleral icterus, conjunctival injection, periorbital swelling ENT exam: Present: normal exam, normal oropharynx, mucous membranes moist Neck exam: Present: normal inspection, full ROM. Absent: tenderness, meningismus, lymphadenopathy Respiratory exam: Present: normal lung sounds bilaterally. Absent: respiratory distress, wheezes, rales, rhonchi, stridor Cardiovascular Exam: Present: normal rhythm, tachycardia, normal heart sounds. Absent: systolic murmur, diastolic murmur, rubs, gallop, clicks GI/Abdominal exam: Present: soft, normal bowel sounds. Absent: distended, tenderness, guarding, rebound, rigid Back exam: Absent: CVA tenderness (R), CVA tenderness (L) Psychiatric exam: Present: anxious Skin exam: Present: warm, dry, intact, normal color. Absent: rash <Estevan Barragan - Last Filed: 01/16/20 11:36> Course Vital Signs 01/16/20 01/16/20 10:48 16:47 Temperature 98.3 F 97.6 F Pulse Rate 101 H 102 H Respiratory 18 18 Rate Blood Pressure 148/102 128/76 O2 Sat by Pulse 98 98 Oximetry Medical Decision Making <Farhan Munguia - Last Filed: 01/16/20 17:52> - Medical Decision Making EPS evaluated the patient and has a safety plan for the patient. (Farhan Munguia) - Lab Data Lab Results 01/16/20 01/16/20 Range/Units 11:00 11:00 Urine Color Light Yellow Urine Appearance Cloudy H (Clear) Urine pH 6.5 (5.0-8.0) Ur Specific [place] 1.006 (1.001-1.035) Urine Protein Negative (Negative) Urine Glucose (UA) 1+ H (Negative) Urine Ketones Trace H (Negative) Urine Blood Negative (Negative) Urine Nitrite Negative (Negative) Urine Bilirubin Negative (Negative) Urine Urobilinogen <2.0 (<2.0) mg/dL Ur Leukocyte Esterase Large H (Negative) Urine WBC >182 H (0-5) /hpf Ur Squamous Epith Cells 1 (0-4) /hpf Urine Bacteria Rare H (None) /hpf Urine Opiates Screen Not Detected (NotDetected) Ur Oxycodone Screen Not Detected (NotDetected) Urine Methadone Screen Not Detected (NotDetected) Ur Propoxyphene Screen Not Detected (NotDetected) Ur Barbiturates Screen Not Detected (NotDetected) U Tricyclic Antidepress Not Detected (NotDetected) Ur Phencyclidine Scrn Not Detected (NotDetected) Ur Amphetamines Screen Not Detected (NotDetected) U Methamphetamines Scrn Not Detected (NotDetected) U Benzodiazepines Scrn Not Detected (NotDetected) Urine Cocaine Screen Not Detected (NotDetected) U Marijuana (THC) Screen Not Detected (NotDetected) Disposition <Estevan Barragan - Last Filed: 01/16/20 11:36> Is patient prescribed a controlled substance at d/c from ED?: No Time of Disposition: 17:51 <Farhan Munguia - Last Filed: 01/16/20 17:52> Clinical Impression: Acute anxiety Clinical Impression: (Ruled Out): Attempted suicide Disposition: HOME SELF-CARE Condition: Good Referrals: Serena Vargas DO [Primary Care Provider] - 1-2 days
[2020-01-16 11:39] LABS: Appearance,Urine Cloudy (Clear); Bacteria,Urine Rare /hpf; Bilirubin,Urine Negative (Negative); Blood,Urine Negative (Negative); Color,Urine Light Yellow; Glucose,Urine (UA) 1+ (Negative); Ketones,Urine Trace (Negative); Leukocyte Esterase,Urine Large (Negative); Nitrite,Urine Negative (Negative); PH, Urine 6.5 (5.0-8.0); Protein,Urine Negative (Negative); Specific Gravity,Urine 1.006 (1.001-1.035); Squamous Epithelial Cell,Urine 1 /hpf (0-4); Urobilinogen,Urine <2.0 mg/dL (<2.0); WBC,Urine >182 /hpf (0-5)
[2020-01-16 11:51] LABS: Amphetamine Screen,Urine Not Detected (NotDetected); Barbiturate Screen,Urine Not Detected (NotDetected); Benzodiazepines Screen,Urine Not Detected (NotDetected); Cocaine Screen,Urine Not Detected (NotDetected); Methadone Screen, Urine Not Detected (NotDetected); Opiate Screen,Urine Not Detected (NotDetected); Oxycodone Screen, Urine Not Detected (NotDetected); Phencyclidine Screen,Urine Not Detected (NotDetected); Tricyclic Antidepressant,Urine Not Detected (NotDetected); Urn Cannabinoid Scrn Not Detected (NotDetected)
[2020-01-16] MEDS ORDERED: cefTRIAXone 1,000 MG VIAL (IM USE) IM STA (12:19)
[2020-01-16 18:31] VITALS: BP 135/83; PULSE 76; TEMP 98.2
== END 2020-01-16 18:36 | disposition home or self-care (01) ==
LOC: EC 10:44
DX: F41.9 Anxiety disorder, unspecified (principal); E11.9 Type 2 diabetes mellitus without complications; I10 Essential (primary) hypertension; E78.5 Hyperlipidemia, unspecified; F17.200 Nicotine dependence, unspecified, uncomplicated; Z79.84 Long term (current) use of oral hypoglycemic drugs; Z79.899 Other long term (current) drug therapy; Z88.0 Allergy status to penicillin
CPT/HCPCS: 99284 ×2; 96372 ×2; 82075; 81001; 80306; 87086; 87077; 87186; J0696